=== PATIENT | male | born 1975 | race Caucasian/White ===

== ENCOUNTER 2023-08-11 20:50 | Emergency (ER) | payer BC ==
[2023-08-11 21:05] VITALS: BP 126/84; PULSE 84; RESP 18; TEMP 98.2; BMI 28.5
[2023-08-11] MEDS ORDERED: ACETAMINOPHEN 325 MG TABLET (FP) ONE (22:15)
[2023-08-11] MEDS: ACETAMINOPHEN 500 MG TABLET (FP) PO ONE (22:16)
[2023-08-11] MEDS ORDERED: LIDOCAINE HCL 1%, 10 MG/ML (20ML VIAL) ONE (23:28)
== END 2023-08-12 01:36 | disposition home or self-care (01) ==
LOC: JER 20:50
PROC: 0RSWXZZ Reposition Right Finger Phalangeal Joint, External Approach (ICD-10-PCS; principal; 2023-08-11)
PROC: 0HQHXZZ Repair Right Upper Leg Skin, External Approach (ICD-10-PCS; 2023-08-11)
DX: S63.286A Dislocation of proximal interphalangeal joint of right little finger, initial encounter (principal); S71.111A Laceration without foreign body, right thigh, initial encounter; V19.9XXA Pedal cyclist (driver) (passenger) injured in unspecified traffic accident, initial encounter
CPT/HCPCS: 73130-TC-RT-FY; 73140-TC-RT-FY; 73502-TC-RT-FY; 73552-TC-RT-FY; 99284-25